=== PATIENT | male | born 1955 | race Caucasian/White ===

== ENCOUNTER → 2023-10-14 14:03 | Outpatient (REF) | payer MEDICARE, OTHER, SELFPAY | LOC: PAVMRI 14:03 | PROVIDERS: ATTENDING PHYSICIAN Internal Medicine; FAMILY PHYSICIAN Family Medicine | DX: I10 Essential (primary) hypertension (principal); N18.32 Chronic kidney disease, stage 3b; I70.1 Atherosclerosis of renal artery | CPT/HCPCS: 74185; A9585 ==

== ENCOUNTER → 2023-11-01 14:38 | Outpatient (REF) | payer MEDICARE, OTHER, SELFPAY | LOC: RAD 14:38 | PROVIDERS: ATTENDING PHYSICIAN Family Medicine | DX: M25.561 Pain in right knee (principal); M25.562 Pain in left knee | CPT/HCPCS: 73564 ==

== ENCOUNTER → 2023-12-07 17:12 | Outpatient (REF) | payer MEDICARE, OTHER, SELFPAY | LOC: PAVMRI 17:12 | PROVIDERS: ATTENDING PHYSICIAN Surgery Vascular Surgery; FAMILY PHYSICIAN Family Medicine | DX: I77.3 Arterial fibromuscular dysplasia (principal) | CPT/HCPCS: 70544 ==

== ENCOUNTER 2023-12-30 05:49 | Inpatient (IN) | payer MEDICARE, OTHER, SELFPAY ==
--- NOTE | 2023-11-26 10:54 | CM ---
Addendum entered by Akiko Cartwright 12/29/23 11:19:
Spoke again with patient. He has obtained a rolling walker and cane.
Original Note:
Patient is scheduled for an elective R TKR on 12/30/23. Spoke with patient prior to surgery via telephone. Introduced role of Orthopedic Navigator. Patient reports that he lives with his in a one story home. There are five steps to enter. He
currently functions independently. He has no DME and has never had VN services. PCP is Dr. Albino Tate.
Discussed orthopedic program and post surgical plans. Reviewed anticipated length of stay and that goal is for him to return home at discharge. Also reviewed outpatient PT. Patient is in agreement with tentative plan and will go directly to
outpatient PT at [facility]. He will have support from his when he goes home.
Patient will complete online education.
Plan: Orthopedic Navigator will remain available to assist with the care of patient and will reassess discharge needs after surgery.
[2023-12-16 12:27] VITALS: BMI 38.9
[2023-12-16 13:55] VITALS: BMI 38.9
[2023-12-16 14:02] LABS: Hematocrit 38.4 % (39.0-52.0); Hemoglobin 13.1 g/dL (13.0-18.0); Mean Corp Hgb Conc. 34.1 g/dL (33.0-37.0); Mean Corpuscular Volume 93.7 fL (80.0-94.0); Mean Platelet Volume 9.2 fL (7.4-10.4); Platelet Count 121 10^3/uL (130-400); Red Cell Dist. Width 13.8 % (11.5-14.5); White Blood Cell Count 5.4 10^3/uL (4.8-10.8)
[2023-12-16 14:17] LABS: ALT (SGPT) 37 U/L (0-50); AST (SGOT) 32 U/L (17-59); Albumin 4.5 g/dl (3.5-5.0); Alkaline Phosphatase 104 U/L (38-126); Blood Urea Nitrogen 24 mg/dl (9-20); Calcium 9.2 mg/dl (8.4-10.2); Carbon Dioxide 26 mmol/L (22-30); Chloride 107 mmol/L (98-107); Estimated Creatinine Clearance 53 ml/min; Glucose 92 mg/dl (70-99); Potassium 4.6 mmol/L (3.5-5.1); Sodium 138 mmol/L (135-145); Total Bilirubin 1.2 mg/dl (0.2-1.3); eGFR 40.49
[2023-12-17 08:59] LABS: Glycohemoglobin (HgbA1c) 6.5 % (4.0-5.6)
[2023-12-30] VITALS (19 sets, daily range): BP systolic 108–158; BP diastolic 50–78; PULSE 64; O2SAT 96; BMI 38.9
[2023-12-30 06:01] LABS: Glucose - Point of Care 167 mg/dl (70-99)
[2023-12-30] MEDS: NORMOSOL-R 1000 IV (06:24)
[2023-12-30] MEDS: TYLENOL 650 MG PO ×4 (06:24→20:05)
[2023-12-30 07:27] LABS: Glucose - Point of Care 147 mg/dl (70-99)
[2023-12-30 09:26] LABS: Glucose - Point of Care 162 mg/dl (70-99)
[2023-12-30] MEDS: NSS 1000 IV (09:57)
[2023-12-30] MEDS: ROXICODONE 5 MG PO (10:36)
[2023-12-30] MEDS: TYLENOL PO (11:25)
--- NOTE | 2023-12-30 12:09 | CM ---
Reviewed chart. Patient admitted as planned for elective R TKR. The discharge plan is for patient to return home at discharge. He will have support from his when he goes home. Patient will go directly to outpatient PT and will go to [facility]. He has an appointment scheduled for Wednesday, 01/02.
Patient has a rolling walker and cane.
He will use [facility] pharmacy for discharge prescriptions.
[2023-12-30 12:16] LABS: Glucose - Point of Care 176 mg/dl (70-99)
[2023-12-30] MEDS: DILAUDID 0.5 MG IV ×4 (12:30→22:00)
[2023-12-30] MEDS: NOVOLOG vial 2 UNITS SC (13:11)
--- NOTE | 2023-12-30 14:25 | W.PN.UPDATE ---
Update Note
Progress Note Update
R knee OA s/p R TKA w/ Dr Bermudez 12/30/23
DVT prophylaxis - ASA, b/l venous foot pumps
HTN - + parameters - monitor BP
Right bundle branch block
Left anterior fascicular block
PACs, asymptomatic.
Atrial fibrillation in the setting of C diff colitis 2021; medical therapy with Diltiazem, on Aspirin only
- Monitor on tele
- Continue Diltiazem
Obstructive sleep apnea, compliant with CPAP (setting 4) - monitor O2
- IS
- Resume CPAP HS
Chronic kidney disease stage 3B, secondary to solitary kidney - minimize nephrotoxins
- Consider nephrology consult if indicated
Insulin-dependent diabetes with retinopathy and neuropathy, A1c 6.5 - monitor BS
- Resume home insulin regimen w/ SSI AC
- Diabetic, carb controlled diet
GERD and Hiatal hernia - continue sodium bicarb
Recent tobacco abuse - previous 1 cigar/day - smoking cessation education provided
Hyperlipidemia
Aortic atherosclerosis
Systolic murmur secondary to possible mild aortic stenosis
Fibromuscular dysplasia, on Aspirin
Multilevel degenerative disc disease
Retroperitoneal sarcoma, 2020, status post right radical nephrectomy and chemotherapy
Prostate cancer, 2003, status post prostatectomy
Pancytopenia, 2021, secondary to sarcoma and chemotherapy
C diff colitis 11/2021
COVID-19, 08/2021, status post monoclonal antibody infusion
Obesity, BMI 38.9
[2023-12-30] MEDS: APRESOLINE PO (14:51)
[2023-12-30] MEDS: SODIUM BICARBONATE PO (14:53)
[2023-12-30] MEDS: LIPITOR 40 MG PO (14:58)
[2023-12-30] MEDS: ZETIA 10 MG PO (14:58)
[2023-12-30] MEDS: NOVOLOG FLEXPEN-MODERATE RESISTANCE SC (14:58)
[2023-12-30] MEDS: JARDIANCE 10 MG PO (14:58)
[2023-12-30] MEDS: ANCEF 5 IV ×2 (14:59→21:54)
[2023-12-30 15:02] LABS: Glucose - Point of Care 182 mg/dl (70-99)
[2023-12-30] MEDS: NOVOLOG FLEXPEN-MODERATE RESISTANCE 1 UNITS SC ×2 (15:03→17:37)
[2023-12-30] MEDS: ROXICODONE 10 MG PO ×2 (15:40→20:05)
[2023-12-30] MEDS: ASPIRIN 325 MG PO (17:02)
[2023-12-30 17:30] LABS: Glucose - Point of Care 181 mg/dl (70-99)
[2023-12-30] MEDS: COLACE 100 MG PO (20:05)
[2023-12-30] MEDS: APRESOLINE 10 MG PO (20:06)
[2023-12-30] MEDS: SENOKOT 17.1999999999999993 MG PO (20:06)
[2023-12-30] MEDS: BACTROBAN 2% OINTMENT 1 APPLIC NASAL (20:06)
[2023-12-30] MEDS: SODIUM BICARBONATE 650 MG PO (20:06)
[2023-12-30 21:39] LABS: Glucose - Point of Care 193 mg/dl (70-99)
[2023-12-30] MEDS: LANTUS 0.5 UNITS SC (21:52)
[2023-12-31] MEDS: TYLENOL 650 MG PO ×4 (00:01→11:49)
[2023-12-31] MEDS: ROXICODONE 5 MG PO ×3 (00:05→08:12)
[2023-12-31 03:25] VITALS: BP 149/75
[2023-12-31 07:20] VITALS: BP 134/71
--- NOTE | 2023-12-31 07:29 | W.PN.ORTHO ---
Today's Communication / Plan
-
Discharge after PT today
Assessment
.
Distal Motor Intact: Yes
Dressing:
Clean, dry and intact.
Assessment:
Stable postop
Plan
.
Surgery / Date: 12/30/2023
DVT Prophylaxis: Aspirin
Activity:
Out of bed.
PT/OT
Discharge Plan: Home w/ Outpatient PT
Discharge Information:
Plan for discharge hometoday with outpatient PT on Wednesday
Subjective
.
.:
Patient resting comfortably. Complains of pain and stiffness
Vital Signs and Labs
.
Vital Signs and Labs:
Lab Results
12/16/23 12:23
12/16/23 12:23
Temp Pulse Resp BP Pulse Ox
97.5 F 77 16 149/75 95
12/31/23 03:25 12/31/23 03:25 12/31/23 03:25 12/31/23 03:25 12/31/23 03:25
Non-invasive Hgb result: 12.4
Physical Exam
-
Pulm: nonlabored
CV: regular
Abd: benign
Ext: NVI distally. Calf soft. Able to fully extend.
[2023-12-31 07:44] LABS: Glucose - Point of Care 199 mg/dl (70-99)
[2023-12-31] MEDS: APRESOLINE PO (08:11)
[2023-12-31] MEDS: LIPITOR 40 MG PO (08:12)
[2023-12-31] MEDS: ZETIA 10 MG PO (08:12)
[2023-12-31] MEDS: ASPIRIN 325 MG PO (08:12)
[2023-12-31] MEDS: CARDIZEM CD 240 MG PO (08:13)
[2023-12-31] MEDS: JARDIANCE 10 MG PO (08:13)
[2023-12-31] MEDS: COLACE 100 MG PO (08:13)
[2023-12-31] MEDS: SODIUM BICARBONATE 650 MG PO (08:13)
[2023-12-31] MEDS: SENOKOT 17.1999999999999993 MG PO (08:13)
[2023-12-31] MEDS: NOVOLOG FLEXPEN 20 UNITS SC (08:19)
[2023-12-31] MEDS: BACTROBAN 2% OINTMENT 1 APPLIC NASAL (08:20)
[2023-12-31] MEDS: NOVOLOG FLEXPEN-MODERATE RESISTANCE 1 UNITS SC (08:20)
[2023-12-31 09:07] VITALS: BP 173/77
[2023-12-31 09:45] VITALS: BP 173/77; PULSE 76
--- NOTE | 2023-12-31 10:40 | CM ---
Reviewed chart and held rounds with PT, OT and ORtho PA. Patient admitted as planned for elective R TKR. Met with patient and after therapy sessions. The discharge plan is for patient to return home at discharge. He will have support from his
when he goes home. Patient will go directly to outpatient PT and will go to [facility]. He has an appointment scheduled for Wednesday, 01/02. Provided paper script for out patient PT to .
Patient has a rolling walker and cane.
He will use [facility] pharmacy for discharge prescriptions.
--- NOTE | 2023-12-31 10:43 | W.PN.ORTHO ---
Today's Communication / Plan
-
D/c today since clinically stable, did well w/ PT and OT.
Assessment
.
Distal Motor Intact: Yes
Dressing:
Trace old incisional bleeding. Dressing otherwise C/D/I.
Assessment:
R knee OA s/p R TKA w/ Dr Bermudez 12/30/23
DVT prophylaxis - ASA, b/l venous foot pumps
R knee pain after therapy - will change PO Oxycodone to PO Dilaudid per pt preference
- Will recommend Lidocaine patches
- Did advise cyclobenzaprine HS to help w/ sleep
- Of note: no NSAIDs due to solitary kidney/CKD, no steroids d/t DM
HTN - + parameters - BPs stable
Right bundle branch block
Left anterior fascicular block
PACs, asymptomatic.
Atrial fibrillation in the setting of C diff colitis 2021; medical therapy with Diltiazem, on Aspirin only
- Maintaining NSR w/ RBBB on tele
- Continue Diltiazem
Obstructive sleep apnea, compliant with CPAP (setting 4) - O2 stable on RA by POD 1
- IS
- Resumed CPAP HS
Chronic kidney disease stage 3B, secondary to solitary kidney - minimize nephrotoxins
- Nephrology consult not indicated
Insulin-dependent diabetes with retinopathy and neuropathy, A1c 6.5 - BS readings overall stable
- Resumed home insulin regimen POD 1 (problem, initially, w/ Fiasp and pharmacy not carrying medication) and minimal SSI AC
- Continue a diabetic, carb controlled diet
GERD and Hiatal hernia - continue sodium bicarb
Recent tobacco abuse - previous 1 cigar/day - smoking cessation education provided
Hyperlipidemia
Aortic atherosclerosis
Systolic murmur secondary to possible mild aortic stenosis
Fibromuscular dysplasia, on Aspirin
Multilevel degenerative disc disease
Retroperitoneal sarcoma, 2020, status post right radical nephrectomy and chemotherapy
Prostate cancer, 2003, status post prostatectomy
Pancytopenia, 2021, secondary to sarcoma and chemotherapy
C diff colitis 11/2021
COVID-19, 08/2021, status post monoclonal antibody infusion
Obesity, BMI 38.9
Plan
.
Surgery / Date: R TKA w/ Dr Bermudez 12/30/23
DVT Prophylaxis: Aspirin
Activity:
Out of bed.
PT/OT
Discharge Plan: Home w/ Outpatient PT
Subjective
.
.:
Patient examined while resting in bed.
R knee pain 03/25 after therapy; will change PO Oxycodone to PO Dilaudid per pt preference.
Denies any other new significant complaints.
Eager for potential d/c today.
Vital Signs and Labs
.
Vital Signs and Labs:
Lab Results
12/16/23 12:23
12/16/23 12:23
Temp Pulse Resp BP Pulse Ox
97.9 F 66 18 134/71 97
12/31/23 07:20 12/31/23 07:20 12/31/23 07:20 12/31/23 08:11 12/31/23 07:20
Non-invasive Hgb result: 12.4
Physical Exam
-
HEENT: No pallor, cyanosis, or jaundice. Throat clear.
NECK: Supple. No JVD.
RESPIRATORY: Lungs clear to auscultation.
CVS: S1, S2 normal. RRR.�
ABDOMEN: Soft, non-tender. No distension. Obese.
EXTREMITIES: Expected post-surgical R knee edema. Strength equal, no calf pain with palpation/dorsiflexion. Calves soft.
FILTER PRESS PUMPER: AOx3. No focal deficits. medical associate grossly intact
--- NOTE | 2023-12-31 10:57 | W.DS.TRANS ---
DC Summary - [facility]acker
-
Discharge Instructions:
Discharge Diagnosis/Procedures R knee OA s/p R TKA w/ Dr Bermudez 12/30/23
Diet Diabetic, Carb Controlled
Activity As tolerated,With Walker
Driving Restrictions Not until seen by your Dr
Bathing Restrictions OK to Shower
Other Services PT
Wound Care Dressing to be removed 1 week post-surgery.
Vernalis to be removed at 2 week follow-up
appointment with surgeon's office.
Instructions:
Stand-Alone Forms: Total Hip/Knee Replacement D/C
Changes to Home Medications: Yes
Discharge Medications:
DC Medications w/original date entered in [employer]
ezetimibe 10 mg tablet 10 mg PO DAILY High cholesterol 01/20/21
atorvastatin 40 mg tablet 40 mg PO DAILY 12/10/23
diltiazem HCl 240 mg capsule,24 hr,extended release 240 mg PO DAILY 12/10/23
empagliflozin 10 mg tablet (Jardiance) 10 mg PO DAILY 12/10/23
glucosamine sulf dipot chlr,msm,chond 550 mg-C 30 mg-jack 1 mg capsule (Glucosamine Chondroitin) 1 cap PO DAILY 12/10/23
insulin degludec 100 unit/mL (3 mL) subcutaneous pen (Tresiba FlexTouch U-100 insulin) 50 unit SC HS 12/10/23
magnesium 200 mg tablet 400 mg PO DAILY 12/10/23
akmferzjmxam-ixlyuojc-bwvcld tablet 1 tab PO DAILY 12/10/23
sodium bicarbonate 650 mg tablet 650 mg PO BID 12/10/23
insulin aspart (niacinamide)(U-100) 100 unit/mL(3 mL) subcutaneous pen (Fiasp FlexTouch U-100 Insulin) 20 unit SC DAILY@0700 12/16/23
insulin aspart (niacinamide)(U-100) 100 unit/mL(3 mL) subcutaneous pen (Fiasp FlexTouch U-100 Insulin) 20 unit SC HS 12/16/23
insulin aspart (niacinamide)(U-100) 100 unit/mL(3 mL) subcutaneous pen (Fiasp FlexTouch U-100 Insulin) 35 unit SC QPM 12/16/23
mupirocin 2 % topical ointment 1 applic intranasal BID #1 tube 12/16/23
acetaminophen 500 mg tablet (Tylenol Extra Strength) 1,000 mg (2 x 500 mg) PO Q6H #30 tabs 12/31/23
aspirin 325 mg tablet 325 mg PO DAILY #30 tabs 12/31/23
cyclobenzaprine 10 mg tablet 10 mg PO HS PRN muscle spasms #10 tabs 12/31/23
docusate sodium 100 mg capsule 100 mg PO BID #30 caps 12/31/23
hydralazine 10 mg tablet 10 mg PO BID #1 tab 12/31/23
oxycodone 5 mg tablet 5 - 10 mg (1 - 2 x 5 mg) PO Q4H PRN moderate-severe pain #30 tabs 12/31/23
lidocaine 4 % topical patch 2 patch topical DAILY #30 ea 12/31/23
ondansetron HCl 4 mg tablet 4 mg PO Q6H PRN nausea and vomiting #30 tabs 12/31/23
sennosides 8.6 mg tablet (Senna Laxative) 17.2 mg (2 x 8.6 mg) PO BID #30 tabs 12/31/23
Home Medication Changes
acetaminophen 500 mg tablet (Tylenol Extra Strength) 1,000 mg (2 x 500 mg) PO Q6H #30 tabs 12/31/23
aspirin 325 mg tablet 325 mg PO DAILY #30 tabs 12/31/23
cyclobenzaprine 10 mg tablet 10 mg PO HS PRN muscle spasms #10 tabs 12/31/23
docusate sodium 100 mg capsule 100 mg PO BID #30 caps 12/31/23
oxycodone 5 mg tablet 5 - 10 mg (1 - 2 x 5 mg) PO Q4H PRN moderate-severe pain #30 tabs 12/31/23
lidocaine 4 % topical patch 2 patch topical DAILY #30 ea 12/31/23
ondansetron HCl 4 mg tablet 4 mg PO Q6H PRN nausea and vomiting #30 tabs 05/17/24
sennosides 8.6 mg tablet (Senna Laxative) 17.2 mg (2 x 8.6 mg) PO BID #30 tabs 12/31/23
Pending Results: No
[2023-12-31] MEDS: LIDOCAINE 4% PATCH 2 PATCH TOPICAL (11:09)
[2023-12-31] MEDS: DILAUDID 2 MG PO (11:10)
[2023-12-31 11:52] VITALS: BP 124/66
== END 2023-12-31 12:27 | disposition home or self-care (01) | DRG 470 ==
LOC: 2 SOUTH 05:49
PROVIDERS: ADMITTING PHYSICIAN Orthopaedic Surgery; FAMILY PHYSICIAN Family Medicine
PROC: 0SRC0J9 Replacement of Right Knee Joint with Synthetic Substitute, Cemented, Open Approach (ICD-10-PCS; 2023-12-30)
DX: M17.11 Unilateral primary osteoarthritis, right knee (principal); I12.9 Hypertensive chronic kidney disease with stage 1 through stage 4 chronic kidney disease, or unspecified chronic kidney disease; N18.32 Chronic kidney disease, stage 3b; E11.22 Type 2 diabetes mellitus with diabetic chronic kidney disease; E78.5 Hyperlipidemia, unspecified; I48.91 Unspecified atrial fibrillation; G47.33 Obstructive sleep apnea (adult) (pediatric); E66.9 Obesity, unspecified; Z68.38 Body mass index [BMI] 38.0-38.9, adult; Z79.82 Long term (current) use of aspirin; Z87.891 Personal history of nicotine dependence; Z79.4 Long term (current) use of insulin
CPT/HCPCS: 36415; 73560; 80053; 82962; 83036; 85027; 87070; 97110; 97116; 97162; 97166; 97530; 97535; 99406; C1713; C1776

== ENCOUNTER → 2024-03-20 06:23 | Outpatient (REF) | payer MEDICARE, OTHER, SELFPAY ==
--- NOTE | 2024-03-20 08:22 | CARDSERVDEF ---
Echocardiogram with Definity completed after protocol screening completed. Allergies verified.
Patent IV site: ___left FA__
IV site flushed with 0.9% NaCl pre and post administration.
Diluted bolus method utilized to enhance visualization of ventricular moore.
Total volume given: __3.0_ mL
Patient tolerated all procedures well without complications.
#22 michelle placed left FA. Definity given. INT removed. dsg applied and pressure held. no bleeding noted.
== END ==
LOC: RAD 06:23
PROVIDERS: ATTENDING PHYSICIAN Internal Medicine Cardiovascular Disease; FAMILY PHYSICIAN Family Medicine
DX: I35.0 Nonrheumatic aortic (valve) stenosis (principal); R09.89 Other specified symptoms and signs involving the circulatory and respiratory systems; R06.09 Other forms of dyspnea
CPT/HCPCS: 93306; 93880; Q9957

== ENCOUNTER → 2024-05-30 10:36 | Outpatient (REF) | payer MEDICARE, OTHER, SELFPAY | LOC: RAD 10:36 | PROVIDERS: ATTENDING PHYSICIAN Surgery Vascular Surgery | DX: I70.1 Atherosclerosis of renal artery (principal) | CPT/HCPCS: 93975 ==

== ENCOUNTER → 2025-07-20 14:28 | Outpatient (REF) | payer MEDICARE, OTHER, SELFPAY | LOC: RAD 14:28 | PROVIDERS: ATTENDING PHYSICIAN Physician Assistant | DX: I70.1 Atherosclerosis of renal artery (principal) | CPT/HCPCS: 93975 ==